=== PATIENT | male | born 1995 | race Caucasian/White ===

== ENCOUNTER 2022-08-30 20:13 | Emergency (ER) | payer OTHER ==
[2022-08-30] MEDS ORDERED: SODIUM CHLORIDE 0.9% 1,000 ML IV STA (20:51)
[2022-08-30] MEDS ORDERED: KETOROLAC 15 MG/ML VIAL IVP STA (20:51)
[2022-08-30] MEDS ORDERED: DEXAMETHASONE 10 MG/ML VIAL IVP STA (20:52)
[2022-08-30] MEDS ORDERED: AMPICILLIN/SULBACTAM 3 GM in SODIUM CHLORIDE 0.9% MINIBAG 100 ML IV STA (20:52)
[2022-08-30 20:53] LABS: RAPID STREP SCREEN POSITIVE (Negative)
--- NOTE | 2022-08-30 20:53 | ED Physician Documentation ---
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 Associated with difficulty swallowing and trismus. No history of health problems. Tried some [id number] cold and flu medication without relief. PD PAST MEDICAL HISTORY - Present Medications Home Medications: Ambulatory Orders Medication Instructions Recorded Confirmed Amox/Clav 875/125 [Augmentin] 1 each PO Q12H #20 tablet 08/30/22 Ibuprofen [Motrin] 800 mg PO Q8H PRN #30 tablet 08/30/22 predniSONE [Deltasone] 60 mg PO DAILY 5 Days #15 tablet 08/30/22 - Allergies Allergies/Adverse Reactions: Allergies Allergy/AdvReac Type Severity Reaction Status Date / Time No Known Drug Allergies Allergy Verified 08/30/22 20:32 PD ED PE NORMAL - Vitals Vital signs reviewed: Yes - General General: Alert and oriented X 3, No acute distress - Neck Neck: Other (Has moderate trismus. Relatively normal phonation but the patient thinks it is abnormal. Large right peritonsillar abscess.) - Neuro Neuro: Alert and oriented X 3, Normal speech - Psych Psych: Normal mood, Normal affect Results - Vitals Vitals: Vital Signs - 24 hr 08/30/22 20:28 Temperature 36.4 C L Heart Rate 105 H Blood Pressure 150/83 H O2 Saturation 100 Oxygen O2 Source Room air - Labs Labs: Laboratory Tests 08/30/22 08/30/22 08/30/22 20:36 21:05 21:05 WBC 14.3 H RBC 5.27 Hgb 14.8 Hct 45.0 MCV 85.4 MCH 28.1 MCHC 32.9 RDW 11.9 L Plt Count 331 MPV 11.0 Neut # (Auto) 11.5 H Lymph # (Auto) 1.5 [place] # (Auto) 1.2 H Eos # (Auto) 0.0 Baso # (Auto) 0.0 Absolute Nucleated RBC 0.00 Nucleated RBC % 0.0 Sodium 136 Potassium 4.2 Chloride 99 L Carbon Dioxide 27 Anion Gap 10.0 BUN 12 Creatinine 0.9 Estimated GFR (MDRD) 103 Glucose 112 H Calcium 9.4 Group A Strep Rapid POSITIVE H PD Medical Decision Making - ED course ED course: 26-year-old gentleman who presents with a peritonsillar abscess. He is positive for strep and has a leukocytosis. Chemistry panel relatively normal. He was feeling better after IV fluids, Decadron, Unasyn, and Toradol. His trismus improved with the above and at this point it does not have the appearance of needing an incision and drainage or needle aspiration. Close follow-up was advised. Departure - Departure Disposition: 01 Home, Self Care Clinical Impression: Peritonsillar abscess Condition: Good Record reviewed to determine appropriate education?: Yes Instructions: ED Peritonsillar Abscess Follow-Up: KAI CARLOS [Physician No Access] - Prescriptions: Amox/Clav 875/125 [Augmentin] 1 each PO Q12H #20 tablet predniSONE [Deltasone] 60 mg PO DAILY 5 Days #15 tablet Ibuprofen [Motrin] 800 mg PO Q8H PRN #30 tablet PRN Reason: PAIN &/OR FEVER Comments: You have a peritonsillar abscess. At this point it does not need to be drained, but she should follow-up with the specialist listed on this form calling his office first thing in the morning for follow-up. It could progress to needing drainage. Return if worse.
[2022-08-30 21:14] LABS: BASOPHILS % (AUTO) 0.1 %; EOSINOPHILS % (AUTO) 0.1 %; HGB - HEMOGLOBIN 14.8 g/dL (14.0-18.0); LYMPHOCYTES # (AUTO) 1.5 10^3/uL (1.5-3.5); LYMPHOCYTES % (AUTO) 10.4 %; MEAN CORPUSCULAR HEMOGLOBIN 28.1 pg (27.0-31.0); MEAN CORPUSCULAR HGB CONC 32.9 g/dL (32.0-36.0); MEAN CORPUSCULAR VOLUME 85.4 fL (80.0-94.0); MONOCYTES # (AUTO) 1.2 10^3/uL (0.0-1.0); MONOCYTES % (AUTO) 8.6 %; NEUTROPHILS # (AUTO) 11.5 10^3/uL (1.5-6.6); NEUTROPHILS % (AUTO) 80.4 %; PLT - PLATELET COUNT 331 10^3/uL (130-450); RED BLOOD COUNT 5.27 10^6/uL (4.70-6.10); RED CELL DISTRIBUTION WIDTH 11.9 % (12.0-15.0); WHITE BLOOD COUNT 14.3 x10^3/uL (4.8-10.8)
[2022-08-30 21:25] LABS: CALCIUM 9.4 mg/dL (8.5-10.3); CREATININE 0.9 mg/dL (0.6-1.2); POTASSIUM 4.2 mmol/L (3.5-5.0)
[2022-08-30 22:27] VITALS: BP 130/80
== END 2022-08-30 22:24 | disposition home or self-care (01) ==
LOC: ED 20:13
DX: J36 Peritonsillar abscess (principal)
CPT/HCPCS: 36415; 80048; 85025; 87430; 96365; 96375; 99284